=== PATIENT | male | born 1955 | race Caucasian/White ===

== ENCOUNTER → 2016-11-18 | Outpatient (CLI) | payer OTHER ==
[~2016-11-18] MED LIST: ANT PO; ASPI81TA28 PO; ATOR-26 PO; CALC600T9 PO; METO50TA7 PO; MULT-506 PO; OXYC-57 PO; PANT40TA PO
--- NOTE | 2016-11-18 11:04 | DIAGNOSTIC IMAGING REPORT ---
ULTRASOUND TESTES AND SCROTUM CLINICAL HISTORY: Hydrocele. COMPARISON STUDY: No priors. TECHNIQUE: Real-time, grayscale, and color Doppler sonography of the testes and scrotum is performed. Images are reviewed in the transverse and longitudinal planes. FINDINGS: The testes are normal in size and homogeneous in echotexture. The right testis measures 4.7 x 2.3 x 3.1 cm and the left testis measures 4.6 x 2.0 x 2.9 cm. No intratesticular mass is seen. Testicular blood flow is normal and symmetric. Normal Doppler waveforms are identified in both testes. A normal right epididymis is not well visualized. There is a large multiloculated appearing complex nonvascular structure in the right inferior scrotal space. This measures over 5 cm in maximum diameter and appears to contain cystic components. No significant internal flow is identified on color imaging. The left epididymal head measures 1.1 cm in length. A 5 mm epididymal head cyst is noted on the right, and a 3 mm epididymal head cyst is noted in the left. There is a small left-sided hydrocele. A varicocele the left measures up to 4 mm. IMPRESSION: 1. Unremarkable sonographic appearance of the testes. 2. A normal right epididymis is not identified. There is a complex structure in the right inferior scrotal space measuring over 5 cm as detailed above. This is pathologically indeterminant, and could represent an abnormal epididymis, a nonspecific mass lesion, or less likely a complex hydrocele. This appears to be remote from the inguinal canal and is unlikely to represent a hernia. Clinical correlation will be required. At a minimum, short-term sonographic follow-up is recommended. 3. There is a small left-sided hydrocele as well as a left-sided varicocele. Electronically signed by: Guero Lauren M.D. 11/18/2016 11:02 AM Dictated Date/Time: 11/18/2016 10:54 AM
== END | disposition home or self-care (01) ==
LOC: C.ULTR 10:20
PROVIDERS: ATTEND Urology
DX: N43.3 Hydrocele, unspecified (principal); I86.1 Scrotal varices; N50.9 Disorder of male genital organs, unspecified

== ENCOUNTER → 2017-04-19 | Outpatient (CLI) | payer OTHER ==
[~2017-04-19] MED LIST changes: -OXYC-57 PO
--- NOTE | 2017-04-19 11:50 | DIAGNOSTIC IMAGING REPORT ---
TESTICULAR ULTRASOUND HISTORY: Hydrocele. COMPARISON: Testicular ultrasound 11/18/2016. FINDINGS: The testes are demonstrated a slightly heterogeneous echotexture suggestive of mild atrophy. The right testis measures 4.7 x 2.5 x 3.0 cm and the left testis measures 4.3 x 2.5 x 2.9 cm. No intratesticular masses. Normal color flow within the bilateral testes. There are few small epididymal cysts, unchanged. Left-sided varicocele is again noted. Small left hydrocele has slightly improved. No significant right-sided hydrocele. Heterogeneous and edematous right lower scrotal tissue with increased color flow is again noted. This is improved compared the prior study. The total area measures approximately 1.8 cm. This may contain a cystic component which is also improved. This previously measured 4.2 cm in size. IMPRESSION: Decrease in size in the heterogeneous right lower scrotal tissue which appears to contain a small fluid collection. This currently measures 1.8 cm, previously measuring 4.2 cm. This favors resolving phlegmon/abscess. Continued follow is recommended to ensure complete resolution. Electronically signed by: Johnathon Perrin M.D. 04/19/2017 11:49 AM Dictated Date/Time: 04/19/2017 11:44 AM
== END | disposition home or self-care (01) ==
LOC: C.ULTR 10:46
PROVIDERS: ATTEND Urology
DX: N43.3 Hydrocele, unspecified (principal)

== ENCOUNTER → 2017-12-13 | Outpatient (CLI) | payer OTHER ==
[~2017-12-13] MED LIST changes: -METO50TA7 PO; +METO50TA8 PO
--- NOTE | 2017-12-13 13:56 | DIAGNOSTIC IMAGING REPORT ---
(TESTICULAR) SCROTUM-CONT CLINICAL HISTORY: 62 years-old Male presenting with L91.8 Skin tag, [id number]. TECHNIQUE: Real-time grayscale and color and spectral Doppler ultrasound imaging of the scrotum was performed. COMPARISON: 04/19/2017. FINDINGS: Right testis: Right testicular parenchyma remarkable for microlithiasis. Up to 2 stones are visualized on a single image. Testis measures 4.6 x 3.0 x 2.5 cm. Normal color Doppler flow and arterial and venous waveforms in the testicular parenchyma. Few small cysts noted in the epididymal head. No hydrocele. No varicocele. Anterior to the right testicle is a complex hypoechoic 7 mm focus that appears to be within the subcutaneous fat of the scrotum. No internal vascularity on color Doppler. No peripheral hyperemia. This appears to be the same location as on prior exam though significantly decreased in size. Left testis: Normal echogenicity and echotexture. Testis measures 4.4 x 2.9 x 2.5 cm. Normal color Doppler flow and arterial and venous waveforms in the testicular parenchyma. 3 mm cyst noted in the epididymal head. Small hydrocele. Varicocele noted. Symmetric perfusion of the testes. IMPRESSION: 1. No evidence of testicular torsion or epididymitis-orchitis. 2. Significant interval decrease in size of the previously noted complex avascular collection anterior to the right testis, likely chronic granulation tissue. 3. Left varicocele. Electronically signed by: Rolando Mcmullen M.D. 12/13/2017 1:54 PM Dictated Date/Time: 12/13/2017 1:50 PM
== END | disposition home or self-care (01) ==
LOC: C.ULTR 12:49
PROVIDERS: ATTEND Urology
DX: L91.8 Other hypertrophic disorders of the skin (principal)